=== PATIENT | female | born 1995 | race African-American/Black ===

== ENCOUNTER 2022-11-21 00:49 | Day surgery (SDC) | payer BC, SELFPAY ==
[2022-11-21 01:34] VITALS: BMI 23.5
[2022-11-21 01:55] LABS: Fetal Membranes Rupture No Membranes Rupture (No Rupture)
[2022-11-21] MEDS ORDERED: hydrALAZINE 20 MG/ML VIAL SLOW IVP PRN (02:11)
== END 2022-11-21 05:15 | disposition home or self-care (01) ==
LOC: CSHLD/OP 00:49
PROVIDERS: ATTEND Family Medicine
DX: O47.1 False labor at or after 37 completed weeks of gestation (principal); Z3A.38 38 weeks gestation of pregnancy
CPT/HCPCS: 76819; 84112; 99284

== ENCOUNTER 2022-12-01 14:49 | Inpatient (IN) | payer BC, MEDICAID, OTHER ==
[2022-12-02 05:19] VITALS: BMI 24.1
[2022-12-02] MEDS ORDERED: Carboprost 250 MCG/ML AMP IM PRN (05:20)
[2022-12-02] MEDS ORDERED: Ibuprofen 800 MG TAB PO PRN (05:20)
[2022-12-02] MEDS ORDERED: Diphenoxylate HCl/Atropine Tablet PO PRN (05:20)
[2022-12-02] MEDS ORDERED: Methylergonovine 0.2 MG/ML VIAL IM PRN (05:20)
[2022-12-02] MEDS ORDERED: hydrALAZINE 20 MG/ML VIAL SLOW IVP PRN ×2 (05:20→20:29)
[2022-12-02] MEDS ORDERED: Acetaminophen 500 MG TAB PO PRN (05:20)
[2022-12-02] MEDS ORDERED: NS w/ Oxytocin 30 units 500 ML IV SCH ×3 (05:20)
[2022-12-02] MEDS ORDERED: Tranexamic Acid 1,000 MG/10 ML VIAL IVP PRN (05:20)
[2022-12-02] MEDS ORDERED: Ondansetron PF 4 MG/2 ML Vial IVP PRN ×4 (05:20→20:29)
[2022-12-02] MEDS ORDERED: fentaNYL 50 mcg/mL 1 mL Vial SLOW IVP PRN (05:20)
[2022-12-02] MEDS ORDERED: Misoprostol 200 MCG TAB PR PRN (05:20)
[2022-12-02] MEDS ORDERED: Lidocaine 1% (PF) 30 ML VIAL SC PRN (05:20)
[2022-12-02] MEDS ORDERED: HYDROcodone/Acetaminophen 5/325 mg Tablet PO PRN (05:20)
[2022-12-02] MEDS ORDERED: Promethazine HCl 25 MG/ML VIAL IM PRN ×4 (05:20→20:29)
[2022-12-02] MEDS: Lactated Ringer's 1,000 ML IV SCH ×2 (06:05→13:54)
[2022-12-02 06:13] LABS: Hematocrit 31.2 % (34.9-44.5); Hemoglobin 10.4 g/dL (12.0-15.5); Mean Corpuscular HGB CONC 33.3 g/dL (32.0-36.0); Mean Corpuscular Volume 83.9 fl (81.6-98.3); Mean Platelet Volume 12.2 fl (7.4-10.4); Platelet Count 238 10x3/uL (150-450); RBC Distribution Width 13.2 % (11.5-14.5); Red Blood Cell (RBC) Count 3.72 10x6/uL (3.90-5.03); White Blood Cell (WBC) Count 9.7 10x3/uL (3.5-10.5)
[2022-12-02] MEDS ORDERED: Penicillin G Potassium 5 MILL.UNITS VIAL ONE (06:19)
[2022-12-02] MEDS: Misoprostol 100 MCG TAB VAG SCH ×3 (07:45→15:04)
[2022-12-02] MEDS ORDERED: Penicillin G Potassium 5 MILL.UNITS in Sodium Chloride 0.9% 100 ML IVPB SCH (07:45)
[2022-12-02 07:54] LABS: HBSAg Index 0.18 S/CO (0-0.99); Hep B Surf Ag - L&D Non-Reactive S/CO (NonReactive)
[2022-12-02 07:55] LABS: Syphilis Antibody Nonreactive (Nonreactive); Syphilis Antibody Index 0.03 S/CO (<1.00 Non-Reactive)
[2022-12-02] MEDS: Penicillin G 2.5 MILL.units 50 ML IVPB SCH ×2 (12:06→15:31)
[2022-12-02] MEDS ORDERED: fentaNYL/Ropivacaine Epidural 100 ML ONE (12:15)
[2022-12-02] MEDS ORDERED: Lactated Ringer's 500 ML IV PRN (14:11)
[2022-12-02] MEDS ORDERED: Naloxone HCl 0.4 mg/ml Vial IVP PRN ×4 (14:11→18:10)
[2022-12-02] MEDS ORDERED: ePHEDrine Sulfate 50 MG/10 ML VIAL SLOW IVP PRN (14:11)
[2022-12-02] MEDS ORDERED: diphenhydrAMINE 50 MG/ML VIAL IVP PRN ×2 (14:11→18:10)
[2022-12-02] MEDS ORDERED: Moisturizing Cream (Eucerin) 113 GM JAR TOP PRN ×2 (14:11→18:10)
[2022-12-02] MEDS ORDERED: Acetaminophen 325 MG TAB PO PRN (14:11)
[2022-12-02] MEDS ORDERED: fentaNYL 2 mcg/Ropivacaine 0.2% Epidural 100 ML CADD EPIDURAL SCH (14:15)
[2022-12-02] MEDS ORDERED: Communication Order-Pharmacy FS SCH ×2 (14:15→18:15)
[2022-12-02] MEDS ORDERED: CEFAZOLIN 2 GM VIAL ONE (16:34)
[2022-12-02] MEDS ORDERED: Azithromycin 500 MG VIAL ONE (16:34)
[2022-12-02] MEDS ORDERED: Oxytocin 10 UNITS/ML VIAL ONE (16:46)
[2022-12-02] MEDS ORDERED: Ondansetron PF 4 MG/2 ML Vial ONE (16:46)
[2022-12-02] MEDS ORDERED: PHENYLEPHRINE-NS 100 MCG/ML 10 ML SYRINGE ONE (16:46)
[2022-12-02] MEDS ORDERED: Lidocaine 2% MPF 10 ML AMP (For Epidural Use) ONE (16:47)
[2022-12-02] MEDS ORDERED: Morphine PF 10 MG/10 ML VIAL ONE (16:55)
[2022-12-02] MEDS ORDERED: Midazolam HCl 2 mg/2 ml Vial ONE (17:24)
[2022-12-02] MEDS ORDERED: Promethazine HCl 25 MG SUPP PR PRN (18:10)
[2022-12-02] MEDS ORDERED: Ondansetron HCl/PF 4 MG/2 ML Vial IVP PRN (18:10)
[2022-12-02] MEDS ORDERED: Fentanyl 50 MCG/1 ML VIAL SLOW IVP PRN (18:10)
[2022-12-02] MEDS ORDERED: Naloxone HCl 0.4 mg/ml Vial IV PRN (18:10)
[2022-12-02] MEDS ORDERED: Meperidine HCl/PF 25 MG/ML VIAL SLOW IVP PRN (18:10)
[2022-12-02] MEDS ORDERED: Ketorolac Tromethamine 30 MG/ML VIAL IVP SCH (18:15)
[2022-12-02] MEDS: Ketorolac Tromethamine 30 MG/ML VIAL IVP PRN (19:13)
[2022-12-02] MEDS ORDERED: Simethicone Chewable 80 MG TAB PO PRN (20:29)
[2022-12-02] MEDS ORDERED: Boostrix 0.5 ML (Tdap) VIAL (>/=7 yrs of age) IM ONE (20:29)
[2022-12-02] MEDS ORDERED: Lanolin Ointment 7 GM TUBE TOP PRN (20:29)
[2022-12-02] MEDS ORDERED: diphenhydrAMINE 25 MG CAP PO PRN (20:29)
[2022-12-02] MEDS ORDERED: Bisacodyl 10 MG SUPP PR PRN (20:29)
[2022-12-02] MEDS: Docusate 100 MG CAP PO SCH (23:09)
[2022-12-02] MEDS: Ferrous Sulfate 325 MG TAB PO SCH (23:11)
[2022-12-03] MEDS: Ketorolac Tromethamine 30 MG/ML VIAL IVP PRN (01:07)
[2022-12-03 05:26] LABS: Hemoglobin 8.3 g/dL (12.0-15.5); Mean Corpuscular HGB CONC 33.2 g/dL (32.0-36.0); Mean Corpuscular Hemoglobin 28.3 pg (27.0-33.0); Mean Corpuscular Volume 85.3 fl (81.6-98.3); Platelet Count 205 10x3/uL (150-450); RBC Distribution Width 13.2 % (11.5-14.5); Red Blood Cell (RBC) Count 2.93 10x6/uL (3.90-5.03); White Blood Cell (WBC) Count 12.4 10x3/uL (3.5-10.5)
[2022-12-03] MEDS: Penicillin G 2.5 MILL.units 50 ML IVPB SCH (08:13)
[2022-12-03] MEDS: HYDROcodone/Acetaminophen 5/325 mg Tablet PO PRN ×4 (08:26→23:57)
[2022-12-03] MEDS: Prenatal Vitamin 1 TAB PO SCH (08:27)
[2022-12-03] MEDS: Ferrous Sulfate 325 MG TAB PO SCH ×2 (08:27→21:12)
[2022-12-03] MEDS: Docusate 100 MG CAP PO SCH ×2 (08:27→21:12)
[2022-12-03] MEDS ORDERED: Bupivacaine PF 0.5% 30 ML VIAL ONE (14:00)
[2022-12-03] MEDS ORDERED: Bupivacaine 0.25% HCL 30 ML VIAL ONE (14:00)
[2022-12-03] MEDS: Ibuprofen 800 MG TAB PO SCH (21:12)
[2022-12-04] MEDS: Ibuprofen 800 MG TAB PO SCH ×3 (05:27→22:42)
[2022-12-04] MEDS: HYDROcodone/Acetaminophen 5/325 mg Tablet PO PRN ×4 (05:27→19:52)
[2022-12-04] MEDS: Docusate 100 MG CAP PO SCH ×2 (10:13→19:52)
[2022-12-04] MEDS: Prenatal Vitamin 1 TAB PO SCH (10:13)
[2022-12-04] MEDS: Ferrous Sulfate 325 MG TAB PO SCH ×2 (10:13→19:52)
[2022-12-05] MEDS: HYDROcodone/Acetaminophen 5/325 mg Tablet PO PRN ×2 (03:23→09:10)
[2022-12-05] MEDS: Ibuprofen 800 MG TAB PO SCH (06:16)
[2022-12-05 08:30] VITALS: BP 133/74; TEMP 98
[2022-12-05] MEDS: Prenatal Vitamin 1 TAB PO SCH (09:10)
[2022-12-05] MEDS: Docusate 100 MG CAP PO SCH (09:10)
[2022-12-05] MEDS: Ferrous Sulfate 325 MG TAB PO SCH (09:11)
== END 2022-12-05 11:45 | disposition home or self-care (01) | DRG 788 ==
LOC: CSHLD 12-02 04:50 → CSHPP 12-02 20:40
PROVIDERS: ADMIT Family Medicine; ATTEND Family Medicine
PROC: 10D00Z1 Extraction of Products of Conception, Low, Open Approach (ICD-10-PCS; principal; 2022-12-02)
PROC: 3E0P7VZ Introduction of Hormone into Female Reproductive, Via Natural or Artificial Opening (ICD-10-PCS; 2022-12-02)
PROC: 10907ZC Drainage of Amniotic Fluid, Therapeutic from Products of Conception, Via Natural or Artificial Opening (ICD-10-PCS; 2022-12-02)
PROC: 4A033R1 Measurement of Arterial Saturation, Peripheral, Percutaneous Approach (ICD-10-PCS; 2022-12-02)
PROC: 4A043R1 Measurement of Venous Saturation, Peripheral, Percutaneous Approach (ICD-10-PCS; 2022-12-02)
PROC: 3E033VJ Introduction of Other Hormone into Peripheral Vein, Percutaneous Approach (ICD-10-PCS; 2022-12-02)
DX: O99.824 Streptococcus B carrier state complicating childbirth (principal); O76 Abnormality in fetal heart rate and rhythm complicating labor and delivery; Z3A.39 39 weeks gestation of pregnancy; Z37.0 Single live birth; Z79.899 Other long term (current) drug therapy
CPT/HCPCS: 36415; 51702; 82805; 85027; 86780; 86850; 86900; 86901; 87340; J1885; J2250; J2274; J2405; J2540; J2590; J3490; J7120; S0020